=== PATIENT | male | born 1955 | race Two or more races ===

== ENCOUNTER 2020-10-07 09:15 | Inpatient (IN) | payer OTHER ==
[~2020-10-07] VITALS: Ht 162.6 cm; Wt 50.8 kg
[2020-10-07] MEDS ORDERED: BENT PO (11:15)
[2020-10-07] MEDS ORDERED: ZOCOR40 MG PO (11:16)
[2020-10-14] MEDS ORDERED: DICY20TA PO (08:44)
[2020-10-17] MEDS ORDERED: HYOSCYAMINE0.125 M1 SL (09:36)
[2020-10-17] MEDS ORDERED: INTEGRA F CAPS1 EACH PO (09:37)
[2020-10-17] MEDS ORDERED: Neurin-Sl Tablet Sl SL (09:37)
[2020-10-17] MEDS ORDERED: ULTRACET PO (09:37)
[2020-10-17] MEDS ORDERED: PYRIDOXINE HCL100 MG PO (09:37)
== END 2020-10-17 11:05 | disposition home or self-care (01) | DRG 330 ==
LOC: O/R 10-13 06:45 → SURH 10-13 09:15
PROVIDERS: ADMIT Surgery; ATTEND Surgery
PROC: 0FB20ZX Excision of Left Lobe Liver, Open Approach, Diagnostic (ICD-10-PCS; 2020-10-13)
PROC: 07BB0ZZ Excision of Mesenteric Lymphatic, Open Approach (ICD-10-PCS; 2020-10-13)
PROC: B54NZZZ Ultrasonography of Left Upper Extremity Veins (ICD-10-PCS; 2020-10-13)
PROC: 0DTN0ZZ Resection of Sigmoid Colon, Open Approach (ICD-10-PCS; principal; 2020-10-13 10:15)
DX: C18.7 Malignant neoplasm of sigmoid colon (principal); C78.7 Secondary malignant neoplasm of liver and intrahepatic bile duct; E78.00 Pure hypercholesterolemia, unspecified; R60.0 Localized edema

== ENCOUNTER 2020-11-10 05:40 | Day surgery (SDC) | payer OTHER ==
[~2020-11-10 05:40] MED LIST: BENT PO; DICY20TA PO; HYOSCYAMINE0.125 M1 SL; INTEGRA CAPSUL1 EACH PO; INTEGRA F CAPS1 EACH PO; Neurin-Sl Tablet Sl SL; PYRIDOXINE HCL100 MG PO; ULTRACET PO; ZOCOR40 MG PO
[2020-11-10] MEDS ORDERED: ULTRACET PO (08:19)
== END 2020-11-10 09:55 | disposition home or self-care (01) ==
LOC: CIR.AMB 05:40
PROVIDERS: ATTEND Surgery
DX: C18.7 Malignant neoplasm of sigmoid colon (principal); Z20.822 Contact with and (suspected) exposure to COVID-19
CPT/HCPCS: 36561; C1751